=== PATIENT | male | born 1990 | race African-American/Black ===

== ENCOUNTER 2017-05-10 00:42 | Emergency (ER) | payer SELFPAY ==
[~2017-05-10] VITALS: Ht 188 cm; Wt 99.4 kg
[~2017-05-10 00:42] MED LIST: DOXY100T PO
[2017-05-10 00:45] VITALS: BP 139/75; PULSE 67; RESP 16; TEMP 97.9; O2SAT 98
--- NOTE | 2017-05-10 01:27 | PD ---
HPI Chief Complaint: Skin Problem Time Seen by Provider: 01:20 Travel History International Travel<30 days: No Contact w/Intl Traveler<30days: No Traveled to known affect area: No History of Present Illness HPI 26-year-old male presents to the emergency department for rash. Patient states he noted rash to his left proximal thigh this evening while taking a shower. Patient notices for the first time. Patient denies any pain. Patient denies any known medical problems. Patient is not diabetic. PFSH Past Medical History Narrative Medical Negative past vehicle history negative surgical history negative alcohol tobacco substance use; nursing notes reviewed Medical History: Denies Significant Hx Hx Anticoagulant Therapy: No Cardiovascular Problems: No Chemotherapy: No Cerebrovascular Accident: No Diabetes: No Diminished Hearing: No Respiratory: No Tetanus Vaccination: Unknown Influenza Vaccination: No Past Surgical History Surgical History: No Previous Surgery Hysterectomy: No Social History Alcohol Use: No Tobacco Use: No Substance Use: No Allergies-Medications (Allergen,Severity, Reaction): Coded Allergies: No Known Allergies (Unverified , 05/10/17) Reported Meds & Prescriptions Reported Meds & Active Scripts Active No Active Prescriptions or Reported Medications Review of Systems Except as stated in HPI: all other systems reviewed are Neg Physical Exam Narrative GENERAL: Well-developed well-nourished male in no acute distress no respiratory distress SKIN: Warm and dry. Attention left proximal thigh region last back area of erythematous with mild raised edges reading 3 cm x 3 cm with central pallor; no vesicles no pustules no petechia no purpura; nontender no induration no fluctuance MUSCULOSKELETAL: No cyanosis, or edema. Data Data Last Documented VS Vital Signs Date Time Temp Pulse Resp B/P (MAP) Pulse Ox O2 Delivery O2 Flow Rate FiO2 05/10/17 00:45 97.9 67 16 139/75 (96) 98 MDM Medical Decision Making Medical Screen Exam Complete: Yes Emergency Medical Condition: Yes Medical Record Reviewed: Yes Differential Diagnosis Tinea corporis, contact dermatitis, cellulitis, abscess Narrative Course Patient with small area of erythema to the proximal medial thigh consistent with ringworm remainder of exam is unremarkable. Patient is aware of need to apply topical antifungal cream or powder to the area and keep site clean and dry as much as possible for the next 6 weeks. Patient can use [id number] anti-fungal medication per package instructions. Diagnosis Primary Impression: Ringworm Referrals: Primary Care Physician as needed Patient Instructions: General Instructions, Skin Yeast Infection (ED) Additional Instructions: Apply [id number] Lotrimin antifungal cream or powder twice daily to affected area 6 weeks Keep area clean and dry avoid moist heat Return to the emergency department for any concerns or change in condition Follow-up with your primary care provider as needed Med/Other Pt SpecificInfo: No Meds Exist/No RX given Scripts No Active Prescriptions or Reported Meds Disposition: 01 DISCHARGE HOME Condition: Stable Rena Romano MD May 10, 2017 01:27
== END 2017-05-10 01:35 | disposition home or self-care (01) ==
LOC: PHED 00:42
DX: B35.9 Dermatophytosis, unspecified (principal)
CPT/HCPCS: 99282

== ENCOUNTER 2017-10-02 23:23 | Emergency (ER) | payer SELFPAY ==
[~2017-10-02] VITALS: Ht 182.9 cm; Wt 96.6 kg
[2017-10-02 23:49] VITALS: BP 129/69; PULSE 77; RESP 16; TEMP 98; O2SAT 99
--- NOTE | 2017-10-03 01:56 | PD ---
HPI Chief Complaint: Complaint Time Seen by Provider: 01:46 Travel History International Travel<30 days: No Contact w/Intl Traveler<30days: No Traveled to known affect area: No History of Present Illness HPI The patient is a 27-year-old male that complains of a yellowish discharge from his penis beginning around 10:30 AM yesterday. He does not recall which woman he got from but he knows he is going to "not go there again". He denies any sores on his penis and denies any fever. He denies any joint ache or skin rash. The patient states it does burn when he urinates. PFSH Past Medical History Medical History: Denies Significant Hx Hx Anticoagulant Therapy: No Cardiovascular Problems: No Chemotherapy: No Cerebrovascular Accident: No Diabetes: No Diminished Hearing: No Respiratory: No Tetanus Vaccination: > 5 Years Influenza Vaccination: No Past Surgical History Surgical History: No Previous Surgery Hysterectomy: No Social History Alcohol Use: No Tobacco Use: No Substance Use: No Allergies-Medications (Allergen,Severity, Reaction): Coded Allergies: No Known Allergies (Unverified Allergy, Unknown, 10/03/17) Reported Meds & Prescriptions Reported Meds & Active Scripts Active No Active Prescriptions or Reported Medications Review of Systems Except as stated in HPI: all other systems reviewed are Neg Physical Exam Narrative GENERAL: Well-nourished, well-developed patient in slight apparent distress with his penile discharge. His vital signs are normal. SKIN: Focused skin assessment warm/dry. HEAD: Normocephalic. EYES: No scleral icterus. No injection or drainage. NECK: Supple, trachea midline. No JVD or lymphadenopathy. CARDIOVASCULAR: Regular rate and rhythm without murmurs, gallops, or rubs. RESPIRATORY: Breath sounds equal bilaterally. No accessory muscle use. GASTROINTESTINAL: Abdomen soft, non-tender, nondistended. MUSCULOSKELETAL: No cyanosis, or edema. BACK: Nontender without obvious deformity. No CVA tenderness. GENITOURINARY: Circumcised. Testes descended bilaterally without evidence of rotation. No lesions or erythema. There is a slightly off yellow urethral discharge. The urine appears cloudy. Data Data Last Documented VS Vital Signs Date Time Temp Pulse Resp B/P (MAP) Pulse Ox O2 Delivery O2 Flow Rate FiO2 10/02/17 23:49 98.0 77 16 129/69 (89) 99 Orders Orders Azithromycin Powd Pack (Zithromax Powd P (10/03/17 02:00) Ceftriaxone Inj (Rocephin Inj) (10/03/17 02:00) Urinalysis - C+S If Indicated (10/03/17 01:52) Lidocaine Pf 1% Inj (Xylocaine-Mpf 1% In (10/03/17 02:00) Urine Culture (10/03/17 01:54) Labs Laboratory Tests Test 10/03/17 01:54 Urine Color YELLOW Urine Turbidity CLOUDY Urine pH 6.0 Urine Specific [place] 1.030 Urine Protein NEG mg/dL Urine Glucose (UA) NEG mg/dL Urine Ketones TRACE mg/dL Urine Occult Blood SMALL Urine Nitrite NEG Urine Bilirubin NEG Urine Leukocyte Esterase MOD Urine RBC 3-5 /hpf Urine WBC INNUM /hpf Urine Squamous Epithelial Cells 0-5 /hpf Urine Bacteria FEW /hpf Microscopic Urinalysis Comment CULTURE INDICATED MDM Medical Decision Making Medical Screen Exam Complete: Yes Emergency Medical Condition: Yes Medical Record Reviewed: Yes Interpretation(s) The urine shows cloudy turbidity, trace ketones, small occult blood, moderate leukocyte esterase with innumerable white cells, few bacteria and culture is indicated. Differential Diagnosis Nonspecific urethritis, gonococcal urethritis, urinary tract infection, syphilis -highly unlikely, lymphogranuloma perineum-highly unlikely Narrative Course The patient likely has nonspecific urethritis. It is possible he could also have a urinary tract infection. He will be treated for both with Rocephin/ Zithromax for the urethritis and Septra DS for the urinary tract infection. He is to follow-up with the public health department. Diagnosis Primary Impression: Nonspecific urethritis Additional Impression: Cystitis Additional Instructions: As we discussed, follow-up with the public health department. We are treating both for urinary tract infection and the penile discharge. The antibiotic is free at [facility] and it is one tablet twice daily for 10 days. You have already been treated for the urethritis (penile discharge). Med/Other Pt SpecificInfo: Prescription(s) given Scripts Sulfamethoxazole-Trimethoprim (Bactrim DS) 800-160 Mg Tab 1 TAB PO BID for Infection, #20 TAB 0 Refills Prov: Umair Wheat MD 10/03/17 Disposition: DISCHARGE HOME Condition: Stable Umair Wheat MD Oct 03, 2017 01:56
[2017-10-03] MEDS ORDERED: LIDOCAINE HCL 1% PF 10 ML VIAL OTHER ONE (02:00)
[2017-10-03] MEDS ORDERED: LIDOCAINE HCL 1% 50 ML VIAL IM ONE (02:00)
[2017-10-03] MEDS ORDERED: AZITHROMYCIN PWD FOR SUSP 1 GM PACKET PO ONE (02:00)
[2017-10-03 02:02] LABS: BILIRUBIN, URINE NEG (NEG); BLOOD, URINE SMALL (NEG); GLUCOSE,URINE NEG (NEG); KETONE, URINE TRACE mg/dL (NEG); NITRITE,URINE NEG (NEG); URINE LEUKOCYTE ESTERASE MOD (NEG)
[2017-10-03 02:10] LABS: URINE COLOR YELLOW (YELLW/STRAW)
[2017-10-03 02:11] LABS: BACTERIA, URINE FEW /hpf; SQUAMOUS EPITHELIAL CELL URINE 0-5 /hpf (0-5); WBC, URINE INNUM /hpf (0-5)
[2017-10-03] MEDS ORDERED: BACT800T5 PO (02:29)
[2017-10-03 02:41] VITALS: BP 123/74; TEMP 98.2
== END 2017-10-03 02:40 | disposition home or self-care (01) ==
LOC: PHED 23:23
DX: N34.1 Nonspecific urethritis (principal); N30.00 Acute cystitis without hematuria
CPT/HCPCS: 81001; 87086; 96372; 99283; J0696